=== PATIENT | female | born 1995 | race African-American/Black ===

== ENCOUNTER → 2017-03-10 | Outpatient (CLI) | payer OTHER | LOC: OD 11:30 | PROVIDERS: ATTEND Physician Assistant | DX: M54.5 Low back pain (principal); M54.6 Pain in thoracic spine | CPT/HCPCS: 72070; 72110 ==

== ENCOUNTER 2017-12-03 19:36 | Emergency (ER) | payer OTHER ==
[2017-12-03 19:43] VITALS: BP 121/82
[2017-12-03] MEDS ORDERED: OXYCODONE-ACETAMINOPHEN 5-325 MG TABLET PO ONE (20:14)
[2017-12-03] MEDS ORDERED: CYCLOBENZAPRINE HCL 10 MG TABLET PO ONE (20:15)
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
--- NOTE | 2017-12-03 20:44 | RADIOLOGY REPORT (SQ) ---
EXAM DESCRIPTION: CT CERVICAL SPINE WITHOUT COMPLETED DATE/TIME: 12/03/2017 8:30 pm REASON FOR STUDY: sharp pain left side of neck down, numb left arm COMPARISON: None. TECHNIQUE: Axial images acquired through the cervical spine without intravenous contrast. Images re viewed with lung, soft tissue and bone windows. Reconstructed coronal and sagittal MPR images review ed. Images stored on PACS. All CT scanners at this facility use dose modulation, iterative reconstruction, and/or weight based d osing when appropriate to reduce radiation dose to as low as reasonably achievable (ALARA). [facility]: Dose Right [facility]: CareDose [facility]: Dose Right [facility]: Teradose 4D [facility]: [employer] RADIATION DOSE: CT Rad equipment meets quality standard of care and radiation dose reduction techniq ues were employed. CTDIvol: 11.5 mGy. DLP: 260 mGy-cm. mGy. LIMITATIONS: None. FINDINGS: ALIGNMENT: Anatomic. MINERALIZATION: Normal. VERTEBRAL BODIES: No fractures or dislocation. DISCS: No significant disc disease. FACETS, LATERAL MASSES, POSTERIOR ELEMENTS: No fractures. No dislocation. No acute findings. HARDWARE: None in the spine. VISUALIZED RIBS: No fractures. LUNG APICES AND SOFT TISSUES: No significant or acute findings. OTHER: No other significant finding. IMPRESSION: NO ACUTE OR SIGNIFICANT FINDINGS IN THE CERVICAL SPINE. TECHNICAL DOCUMENTATION: JOB ID: [id number] Quality ID # [id number]: Final reports with documentation of one or more dose reduction techniques (e.g., Au tomated exposure control, adjustment of the mA and/or kV according to patient size, use of iterative reconstruction technique) 2010 [employer]- All Rights Reserved
[2017-12-03] MEDS ORDERED: PREDNISONE 20 MG TABLET PO ONE (20:56)
== END 2017-12-03 21:15 | disposition home or self-care (01) ==
LOC: ER 19:36
DX: M54.2 Cervicalgia (principal); R20.2 Paresthesia of skin; I10 Essential (primary) hypertension
CPT/HCPCS: 99283; 72125; L0120; J7512

== ENCOUNTER 2018-01-25 08:55 | Emergency (ER) | payer SELFPAY ==
[2018-01-25 08:59] VITALS: BP 112/79
[2018-01-25] MEDS ORDERED: PENICILLIN G BENZATHINE 1.2 MILLION UNIT/2 ML DISP.SYRIN IM ONE (09:27)
[2018-01-25] MEDS ORDERED: LIDOCAINE 2% VISCOUS SOLN 20 ML UDCUP PO ONE (09:27)
--- NOTE | 2018-01-25 09:33 | ER Document Report ---
ED General - General Chief Complaint: Sore Throat Stated Complaint: SORE THROAT Time Seen by Provider: 01/25/18 09:27 Notes: 22-year-old female here with complaints of sore throat ongoing for the past 1 day. Pain is worse with swallowing. She is still able to swallow however. She is able to tolerate her secretions. More painful to swallow solids versus liquids. She has not tried taking anything for the pain. No cough congestion runny nose vomiting diarrhea fevers chills. TRAVEL OUTSIDE OF THE [place] IN LAST 30 DAYS: No - Related Data Allergies/Adverse Reactions: No Known Allergies Allergy (Verified 01/25/18 08:56) Past Medical History - Social History Smoking Status: Unknown if Ever Smoked Family History: Reviewed & Not Pertinent - Past Medical History Cardiac Medical History: Reports: Hx Hypertension - hx of Denies: Hx Coronary Artery Disease, Hx Heart Attack Pulmonary Medical History: Denies: Hx Asthma, Hx Bronchitis, Hx COPD, Hx Pneumonia Neurological Medical History: Reports: Hx Migraine. Denies: Hx Cerebrovascular Accident, Hx Seizures Renal/ Medical History: Denies: Hx Peritoneal Dialysis Musculoskeltal Medical History: Denies Hx Arthritis Past Surgical History: Reports: Hx Gynecologic Surgery, Hx Herniorrhaphy - Umbilical, Hx Orthopedic Surgery - left knee. Denies: Hx Hysterectomy - Immunizations Immunizations up to date: Yes Hx Diphtheria, Pertussis, Tetanus Vaccination: Yes Review of Systems - Review of Systems Notes: See history of present illness for pertinent positive review of systems; otherwise all review of systems have been reviewed and are negative Physical Exam - Vital signs Vitals: Temp Pulse Resp BP Pulse Ox 98.8 F 87 16 112/79 98 01/25/18 08:58 01/25/18 08:58 01/25/18 08:58 01/25/18 08:58 01/25/18 08:58 - Notes Notes: PHYSICAL EXAMINATION: GENERAL: Well-appearing and in no acute distress. HEAD: Atraumatic, normocephalic. EYES: Pupils equal round and reactive to light, extraocular movements intact, sclera anicteric, conjunctiva are normal. ENT: nares patent, oropharynx mild to moderate erythema with moderate tonsillar exudates. Moist mucous membranes. Widely patent airway NECK: Normal range of motion, supple without lymphadenopathy LUNGS: CTAB and equal. No wheezes rales or rhonchi. HEART: Regular rate and rhythm without murmurs ABDOMEN: Soft, no tenderness. No guarding, no rebound EXTREMITIES: Normal range of motion, no pitting edema. No cyanosis. NEUROLOGICAL: Cranial nerves grossly intact. Normal sensory/motor exams. PSYCH: Normal mood, normal affect. SKIN: Warm, Dry, normal turgor, no rashes or lesions noted Course - Re-evaluation Re-evalutation: 01/25/18 09:33 MEDICAL DECISION MAKING: Concern for strep pharyngitis Able to tolerate secretions appropriately She opts for a one-time dose of Bicillin Return precautions given but otherwise follow-up PCP next day or few instructed Patient understands and agrees to the plan of care - Vital Signs Vital signs: Temp Pulse Resp BP Pulse Ox 98.8 F 87 16 112/79 98 01/25/18 08:58 01/25/18 08:58 01/25/18 08:58 01/25/18 08:58 01/25/18 08:58 Discharge - Discharge Clinical Impression: Strep throat Condition: Good Disposition: HOME, SELF-CARE Instructions: Strep Throat ([facility]) Additional Instructions: Your treated for strep pharyngitis with a one-time dose of antibiotics called Bicillin. Use Cepacol throat spray for your throat pain. Ibuprofen and Tylenol will also help. If swallowing pills is too painful, use liquid ibuprofen and Tylenol. You were seen in the emergency department at [facility]. Please followup with your primary physician in the next few days for further management/evaluation. Please return to the emergency department for worsening of symptoms or any symptom that you deem to be concerning or life-threatening. Thank you for allowing us to be part of your care.
== END 2018-01-25 10:38 | disposition home or self-care (01) ==
LOC: ER 08:55
DX: J02.0 Streptococcal pharyngitis (principal); I10 Essential (primary) hypertension
CPT/HCPCS: 99282; 96372; J0561

== ENCOUNTER 2018-05-14 13:41 | Emergency (ER) | payer SELFPAY ==
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
--- NOTE | 2018-05-14 14:49 | RADIOLOGY REPORT (SQ) ---
EXAM DESCRIPTION: FOREARM RIGHT COMPLETED DATE/TIME: 05/14/2018 2:38 pm REASON FOR STUDY: pain s/p injury proximal radius tenderness COMPARISON: None. NUMBER OF VIEWS: Two views. TECHNIQUE: Two radiographic images acquired of the right forearm, including elbow and wrist in at le ast one projection. LIMITATIONS: None. FINDINGS: MINERALIZATION: Normal. BONES: No acute fracture. No worrisome bone lesions. SOFT TISSUES: No obvious swelling or foreign body. OTHER: No other significant finding. IMPRESSION: NEGATIVE STUDY OF THE RIGHT FOREARM. NO RADIOGRAPHIC EVIDENCE OF ACUTE INJURY. TECHNICAL DOCUMENTATION: JOB ID: [id number] [employer]- All Rights Reserved Reading location - IP/workstation name: [email or web address]
--- NOTE | 2018-05-14 14:50 | RADIOLOGY REPORT (SQ) ---
EXAM DESCRIPTION: HAND RIGHT 3 VIEWS COMPLETED DATE/TIME: 05/14/2018 2:38 pm REASON FOR STUDY: pain s/p injury, snuff box tenderness COMPARISON: None. EXAM PARAMETERS: NUMBER OF VIEWS: Three views. TECHNIQUE: AP, lateral and oblique radiographic images acquired of the right hand. LIMITATIONS: None. FINDINGS: MINERALIZATION: Normal. BONES: No acute fracture or dislocation. No worrisome bone lesions. JOINTS: No effusions. SOFT TISSUES: No soft tissue swelling. No foreign body. OTHER: No other significant finding. IMPRESSION: NEGATIVE STUDY OF THE RIGHT HAND. NO RADIOGRAPHIC EVIDENCE OF ACUTE INJURY. TECHNICAL DOCUMENTATION: JOB ID: [id number] [employer]- All Rights Reserved Reading location - IP/workstation name: [email or web address]
[2018-05-14 15:42] VITALS: BP 118/77
== END 2018-05-14 15:44 | disposition home or self-care (01) ==
LOC: ER 13:41
DX: M79.641 Pain in right hand (principal); M79.631 Pain in right forearm; W50.0XXA Accidental hit or strike by another person, initial encounter; I10 Essential (primary) hypertension
CPT/HCPCS: 99283

== ENCOUNTER 2018-06-12 14:33 | Emergency (ER) | payer SELFPAY ==
--- NOTE | 2018-06-12 16:01 | ER Document Report ---
ED General - General Chief Complaint: Arm Pain Stated Complaint: ARM NECK PAIN Time Seen by Provider: 06/12/18 15:41 TRAVEL OUTSIDE OF THE [place] IN LAST 30 DAYS: No - HPI Patient complains to provider of: Left arm pain Notes: Patient coming in for evaluation of left arm pain. Patient states she did have her arm stuck between a door earlier in the week and now has developed 2 small knots in the forearm concerned she has a blood clot in her arm. Denies any swelling denies any numbness or tingling placed pain is from hand to neck. Patient denies any other trauma. Patient was to complete formal evaluation - Related Data Allergies/Adverse Reactions: No Known Allergies Allergy (Verified 05/14/18 14:22) Past Medical History - Social History Smoking Status: Never Smoker Chew tobacco use (# tins/day): No Frequency of alcohol use: None Drug Abuse: None Family History: Reviewed & Not Pertinent Patient has suicidal ideation: No Patient has homicidal ideation: No - Past Medical History Cardiac Medical History: Reports: Hx Hypertension - hx of Denies: Hx Coronary Artery Disease, Hx Heart Attack Pulmonary Medical History: Denies: Hx Asthma, Hx Bronchitis, Hx COPD, Hx Pneumonia Neurological Medical History: Reports: Hx Migraine. Denies: Hx Cerebrovascular Accident, Hx Seizures Renal/ Medical History: Denies: Hx Peritoneal Dialysis Musculoskeletal Medical History: Denies Hx Arthritis Past Surgical History: Reports: Hx Gynecologic Surgery - endometriosis, Hx Herniorrhaphy - Umbilical, Hx Orthopedic Surgery - left knee. Denies: Hx Hysterectomy - Immunizations Immunizations up to date: Yes Hx Diphtheria, Pertussis, Tetanus Vaccination: Yes Review of Systems - Review of Systems Constitutional: No symptoms reported EENT: No symptoms reported Cardiovascular: No symptoms reported Respiratory: No symptoms reported Gastrointestinal: No symptoms reported Genitourinary: No symptoms reported Female Genitourinary: No symptoms reported Musculoskeletal: Other - Arm pain Skin: No symptoms reported Hematologic/Lymphatic: No symptoms reported Neurological/Psychological: No symptoms reported -: Yes All other systems reviewed and negative Physical Exam - Vital signs Vitals: Temp Pulse Resp BP Pulse Ox 99.0 F 72 14 132/95 H 99 06/12/18 14:36 06/12/18 14:36 06/12/18 14:36 06/12/18 14:36 06/12/18 14:36 Interpretation: Normal - General General appearance: Appears well, Alert - HEENT Head: Normocephalic, Atraumatic Eyes: Normal Pupils: PERRL - Respiratory Respiratory status: No respiratory distress Chest status: Nontender Breath sounds: Normal Chest palpation: Normal - Cardiovascular Rhythm: Regular Heart sounds: Normal auscultation Murmur: No - Abdominal Inspection: Normal Distension: No distension Bowel sounds: Normal Tenderness: Nontender Organomegaly: No organomegaly - Back Back: Normal, Nontender - Extremities General upper extremity: Nontender, Normal color, Normal ROM, Normal temperature. No: Normal inspection - Patient has 2 small pea-sized nodules on the forearm one midforearm he has been near the antecubital region with no signs of trauma. Bedside ultrasound shows compressibility of the veins along with augmentation there is flow in the noncompressible side. There is correlation of 1 of the larger bumps in the mid forearm region within the soft tissues looking consistent with a bruise. General lower extremity: Normal inspection, Nontender, Normal color, Normal ROM , Normal temperature, Normal weight bearing. No: You's sign - Neurological Neuro grossly intact: Yes Cognition: Normal Orientation: AAOx4 [place] Coma Scale Eye Opening: Spontaneous [place] Coma Scale Verbal: Oriented [place] Coma Scale Motor: Obeys Commands [place] Coma Scale Total: 15 Speech: Normal Motor strength normal: LUE, RUE, LLE, RLE Sensory: Normal - Psychological Associated symptoms: Normal affect, Normal mood - Skin Skin Temperature: Warm Skin Moisture: Dry Skin Color: Normal Course - Re-evaluation Re-evalutation: 06/12/18 16:51 No acute findings of a blood clot on my bedside examination. Otherwise the patient's physical examination is otherwise benign. Possible etiology for 2 small areas in the form could be from remote trauma. Patient was encouraged to place warm compresses on the area antifungal medication along with Tylenol. Patient will be discharged home. - Vital Signs Vital signs: Temp Pulse Resp BP Pulse Ox 98.0 F 76 18 125/80 99 06/12/18 16:04 06/12/18 16:04 06/12/18 16:04 06/12/18 16:04 06/12/18 16:04 Discharge - Discharge Clinical Impression: Arm pain Qualifiers: Laterality: left Qualified Code(s): M79.602 - Pain in left arm Condition: Good Disposition: HOME, SELF-CARE Instructions: Arm Pain, Nonspecific ([facility]) Additional Instructions: Follow-up with her primary care physician. Bedside ultrasound today does not show any signs of a blood clot within the arms. Ultrasound does show some signs of possible muscle contusion at the site of the 2 small knots. We recommend Tylenol Motrin for pain control keep the arm elevated at night also apply warm packs and cold packs for pain control. Return to the ER symptoms worsen. Prescriptions: Ibuprofen [Motrin 600 mg Tablet] 600 mg PO Q8HP PRN #21 tablet PRN Reason: Forms: Return to Work
[2018-06-12 16:07] VITALS: BP 125/80
== END 2018-06-12 16:05 | disposition home or self-care (01) ==
LOC: ER 14:33
DX: M79.602 Pain in left arm (principal); I10 Essential (primary) hypertension
CPT/HCPCS: 99283

== ENCOUNTER 2018-12-19 11:37 | Emergency (ER) | payer BC, OTHER ==
[2018-12-19] MEDS ORDERED: KETOROLAC TROMETHAMINE 60 MG/2 ML SDV IM ONE (12:48)
[2018-12-19] MEDS ORDERED: SUMATRIPTAN SUCCINATE INJ/PF 6 MG/0.5 ML SDV SUBCUT ONE (12:48)
[2018-12-19] MEDS ORDERED: ONDANSETRON ODT 4 MG TAB (6 TAB/ER DISP) PO PRN (12:48)
--- NOTE | 2018-12-19 12:49 | ER Document Report ---
ED Medical Screen (RME) - General Chief Complaint: Headache Stated Complaint: HEADACHE Time Seen by Provider: 12/19/18 12:44 Primary Care Provider: LUKE FLORES DO [Primary Care Provider] - Follow up as needed Notes: 23 years old female with a history of migraine headaches presents today since this morning around 630, associated with complete loss of vision from 6:30 AM to 7:30 AM. Now having global headache, slight nausea no vomiting. And also having left upper neck pain. Denies any focal weakness numbness tingling sensation. TRAVEL OUTSIDE OF THE [place] IN LAST 30 DAYS: No - Related Data Allergies/Adverse Reactions: No Known Allergies Allergy (Verified 12/19/18 11:37) Past Medical History - Social History Family history: None - Past Medical History Cardiac Medical History: Reports: Hx Hypertension - hx of Denies: Hx Coronary Artery Disease, Hx Heart Attack Pulmonary Medical History: Denies: Hx Asthma, Hx Bronchitis, Hx COPD, Hx Pneumonia Neurological Medical History: Reports: Hx Migraine. Denies: Hx Cerebrovascular Accident, Hx Seizures Renal/ Medical History: Denies: Hx Peritoneal Dialysis Musculoskeltal Medical History: Denies Hx Arthritis Past Surgical History: Reports: Hx Gynecologic Surgery - endometriosis, Hx Herniorrhaphy - Umbilical, Hx Orthopedic Surgery - left knee. Denies: Hx Hysterectomy - Immunizations Immunizations up to date: Yes Hx Diphtheria, Pertussis, Tetanus Vaccination: Yes Physical Exam - Vital signs Vitals: Temp Pulse Resp BP Pulse Ox 98.4 F 84 16 120/71 100 12/19/18 12:01 12/19/18 12:01 12/19/18 12:01 12/19/18 12:01 12/19/18 12:01 Course - Vital Signs Vital signs: Temp Pulse Resp BP Pulse Ox 98.4 F 84 16 120/71 100 12/19/18 12:12/19/18 12:01 12/19/18 12:01 12/19/18 12:01 12/19/18 12:01 Doctor's Discharge - Discharge Referrals: LUKE FLORES DO [Primary Care Provider] - Follow up as needed
[2018-12-19] MEDS ORDERED: PROCHLORPERAZINE EDISYLATE INJ 10 MG/2 ML VIAL IV ONE (14:31)
[2018-12-19] MEDS ORDERED: NORMAL SALINE 1000 ML 1,000 ML IV ONE (14:31)
[2018-12-19] MEDS ORDERED: DIPHENHYDRAMINE HCL 50 MG/ML VIAL IV ONE (14:31)
--- NOTE | 2018-12-19 14:35 | ER Document Report ---
ED Headache - General Chief Complaint: Headache Stated Complaint: HEADACHE Time Seen by Provider: 12/19/18 12:44 Primary Care Provider: LUKE FLORES DO [Primary Care Provider] - Follow up as needed Mode of Arrival: Ambulatory Information source: Patient Notes: Patient states that she woke up with a headache around 630 this morning. Patient states that she has daily migraines in which she wakes up with headache pain. Patient states that this headache was different and that it started in the occipital area and then migrated to the temporal and frontal areas. Patient states usually she just has temporal and frontal headache. Patient states that between 630 and 730 she had blurred vision. Patient states that typically with her migraine she does not have any visual symptoms. Patient denies any nausea vomiting diarrhea. Patient denies any fever or head injury. Patient denies any recent illness. Patient states that she had to have her call into her employer today. Patient states that she had a lot going on at home which is why she did not come in initially when her symptoms started. TRAVEL OUTSIDE OF THE [place] IN LAST 30 DAYS: No - HPI Patient complains to provider of: Headache Patient reports: Prior neurologic eval, Other - Daily migraines Onset: This morning Onset was: Gradual Timing: Still present Quality of pain: Throbbing Pain Level: 4 Context: denies: Head injury Associated symptoms: Double/blurred vision - Blurred. denies: Fever, Nausea/vomiting, Neck pain, Speech problems, Stiff neck Exacerbated by: Light. denies: Noise Similar symptoms previously: No - Daily migraines, although not usually with any visual symptoms Recently seen / treated by doctor: No - Related Data Allergies/Adverse Reactions: No Known Allergies Allergy (Verified 12/19/18 11:37) Past Medical History - General Information source: Patient - Social History Smoking Status: Never Smoker Chew tobacco use (# tins/day): No Frequency of alcohol use: None Drug Abuse: None Family History: Reviewed & Not Pertinent Patient has suicidal ideation: No Patient has homicidal ideation: No - Past Medical History Cardiac Medical History: Reports: Other - POTS Denies: Hx Hypercholesterolemia, Hx Peripheral Vascular Disease Neurological Medical History: Reports: Hx Migraine. Denies: Hx Cerebrovascular Accident, Hx Seizures Renal/ Medical History: Denies: Hx Peritoneal Dialysis Past Surgical History: Reports: Hx Gynecologic Surgery - endometriosis, Hx Herniorrhaphy - Umbilical, Hx Orthopedic Surgery - left knee. Denies: Hx Hysterectomy - Immunizations Immunizations up to date: Yes Hx Diphtheria, Pertussis, Tetanus Vaccination: Yes Review of Systems - Review of Systems Constitutional: No symptoms reported. denies: Fever, Recent illness EENT: Blurred vision Cardiovascular: No symptoms reported. denies: Chest pain Respiratory: No symptoms reported. denies: Cough Gastrointestinal: No symptoms reported. denies: Diarrhea, Vomiting Genitourinary: No symptoms reported Female Genitourinary: No symptoms reported Musculoskeletal: Neck pain - Lateral neck tenderness. denies: Back pain Skin: No symptoms reported. denies: Rash Hematologic/Lymphatic: No symptoms reported Neurological/Psychological: Headaches. denies: Confusion, Weakness Physical Exam - Vital signs Vitals: Temp Pulse Resp BP Pulse Ox 98.4 F 84 16 120/71 100 12/19/18 12:01 12/19/18 12:01 12/19/18 12:01 12/19/18 12:01 12/19/18 12:01 - General General appearance: Appears well, Alert In distress: None - HEENT Head: Normocephalic, Atraumatic Eyes: Normal Conjunctiva: Normal Extraocular movements intact: Yes Eyelashes: Normal Pupils: PERRL Corrective lenses worn: No Ears: Normal External canal: Normal Tympanic membrane: Normal Nasal: Normal Mouth/Lips: Normal Mucous membranes: Normal. No: Dry Pharynx: Normal. No: Erythema, Exudate, Potential airway comprom. Neck: Other - Mild cervical paraspinal tenderness with palpation, no midline tenderness step-off or deformity. No: Brudzinski, Lymphadenopathy, Meningismus - Respiratory Respiratory status: No respiratory distress Chest status: Nontender Breath sounds: Normal. No: Rales, Rhonchi, Stridor, Wheezing Chest palpation: Normal - Cardiovascular Rhythm: Regular Heart sounds: S1 appreciated, S2 appreciated Murmur: No - Back Back: Tender - Trapezius muscle tenderness - Extremities General upper extremity: Normal inspection, Normal ROM General lower extremity: Normal inspection, Normal ROM - Neurological Neuro grossly intact: Yes Cognition: Normal Key Coma Scale Eye Opening: Spontaneous [place] Coma Scale Verbal: Oriented [place] Coma Scale Motor: Obeys Commands [place] Coma Scale Total: 15 Speech: Normal. No: Dysarthria Cranial nerves: Normal. No: Facial palsy Cerebellar coordination: Normal Motor strength normal: LUE, RUE, LLE, RLE - Psychological Associated symptoms: Normal affect, Normal mood - Skin Skin Temperature: Warm Skin Moisture: Dry Skin Color: Normal Course - Re-evaluation Re-evalutation: 12/19/18 14:[address] Doshi regarding patient presentation and exam findings. Dr. Doshi did evaluate patient in the [facility] area. Does not recommend any MR imaging at this time suspect patient has migraine with visual features. Does not recommend any CT imaging. Requests that a urine drug screen be performed. 12/19/18 15:09 dr Doshi to bedside to discuss plan of care with patient. Explained to the patient that he feels symptoms are attributed to migraine, and does not feel that patient warrants any additional imaging at this time and is safe for discharge. Patient refuses any medications for headache stating that she chronically has migraines and she does not want to just go home and sleep and wake up tomorrow with a migraine. Patient is not requesting any additional medications and would like to be discharged. Patient denies any visual disturbance symptoms at this time. Patient neurologically intact. Patient without any history of cardiovascular disease. Patient otherwise healthy. Patient had been followed by neurology fairly closely for her daily migraines up until a year ago when she lost her insurance. Patient does have her insurance reinstated and is encouraged to follow-up with her neurologist for recheck. The patient presents with headache without signs of [employer] bleed, stroke, infection, or other serious etiology. The patient is neurologically intact. Given the extremely low risk of these diagnoses further testing and evaluation for these possibilities does not appear to be indicated at this time. The patient has been instructed to return if the symptoms worsen or change in any way. 12/19/18 15:19 - Vital Signs Vital signs: Temp Pulse Resp BP Pulse Ox 98.4 F 84 16 120/71 100 12/19/18 12:01 12/19/18 12:01 12/19/18 12:01 12/19/18 12:01 12/19/18 12:01 Discharge - Discharge Clinical Impression: Headache Qualifiers: Headache type: unspecified Headache chronicity pattern: unspecified pattern Intractability: not intractable Qualified Code(s): R51 - Headache Condition: Stable Disposition: HOME, SELF-CARE Instructions: Headache ([facility]), Migraine Headache ([facility]) Additional Instructions: Return immediately for any new or worsening symptoms Followup with your primary care provider, call tomorrow to make a followup appointment Follow-up with your neurologist for a recheck, call today for an appointment Stay well-hydrated. Forms: Return to Work Referrals: LUKE FLORES, [Primary Care Provider] - Follow up as needed
[2018-12-19 15:13] LABS: APPEARANCE,URINE SLIGHTLY-CLOUDY; BILIRUBIN,URINE NEGATIVE (NEGATIVE); COLOR,URINE YELLOW; GLUCOSE, URINE NEGATIVE (NEGATIVE); KETONES,URINE NEGATIVE (NEGATIVE); LEUKOCYTE ESTERASE,URINE NEGATIVE (NEGATIVE); NITRITE,URINE NEGATIVE (NEGATIVE); PROTEIN,URINE NEGATIVE (NEGATIVE); UROBILINOGEN,URINE NEGATIVE mg/dL (<2.0)
[2018-12-19 15:23] VITALS: BP 120/70
[2018-12-19 15:24] LABS: URINE AMPHETAMINES SCREEN NEGATIVE; URINE BARBITURATES SCREEN NEGATIVE; URINE BENZODIAZEPINES SCREEN NEGATIVE; URINE COCAINE SCREEN NEGATIVE; URINE MARIJUANA (THC) SCREEN NEGATIVE; URINE METHADONE SCREEN NEGATIVE; URINE PHENCYCLIDINE SCREEN NEGATIVE
== END 2018-12-19 15:23 | disposition home or self-care (01) ==
LOC: ER 11:37
DX: R51 Headache (principal); H53.8 Other visual disturbances; Z86.69 Personal history of other diseases of the nervous system and sense organs
CPT/HCPCS: 99283; 96372; 81025; 81001; 80307; J1885; J3030; J7030

== ENCOUNTER 2019-05-20 10:39 | Emergency (ER) | payer OTHER ==
[2019-05-20 11:00] VITALS: BP 127/88
--- NOTE | 2019-05-20 11:08 | ER Document Report ---
HPI - HPI Time Seen by Provider: 05/20/19 10:56 Pain Level: 4 Notes: Patient is a 24-year-old female with a history of migraines, POTS who presents complaining of head injury to the left side forehead/tenriism area status post injury yesterday. Patient states that she is playing football when she got hit in the forehead area and then fell to the ground and hit her head again. Patient states that she did have some nausea initially but no loss of consciousness or vomiting. Patient states that since then her symptoms have overall improved, but she is continuing to feel some fatigue and having a mild headache. She has been using Motrin which does seem to help at home. She is able to eat and drink without difficulty. She is urinating normally and having normal bowel movements. Patient has been ambulatory since then without difficulty. Patient is requesting a work note. Denies drug allergies. No other concerns or complaints. Denies any fever, changes in vision/speech/mentation/hearing, URI, sore throat, chest pain, palpitations, syncope, cough, shortness of breath, wheeze, dyspnea, abdominal pain, nausea/vomiting/diarrhea, urinary retention, dysuria, hematuria, loss of control of bowel or bladder, numbness/tingling, saddle anesthesia, muscle para lysis/weakness, or rash. - ROS Systems Reviewed and Negative: Yes All other systems reviewed and negative - REPRODUCTIVE Reproductive: DENIES: : - DERM Skin Color: Normal Past Medical History - Social History Smoking Status: Never Smoker Chew tobacco use (# tins/day): No Frequency of alcohol use: Occasional Drug Abuse: None Family History: Reviewed & Not Pertinent Patient has suicidal ideation: No Patient has homicidal ideation: No - Past Medical History Cardiac Medical History: Reports: Hx Hypertension - hx of Denies: Hx Coronary Artery Disease, Hx Heart Attack, Hx Hypercholesterolemia, Hx Peripheral Vascular Disease Pulmonary Medical History: Denies: Hx Asthma, Hx Bronchitis, Hx COPD, Hx Pneumonia Neurological Medical History: Reports: Hx Migraine. Denies: Hx Cerebrovascular Accident, Hx Seizures Renal/ Medical History: Denies: Hx Peritoneal Dialysis Musculoskeletal Medical History: Denies Hx Arthritis Past Surgical History: Reports: Hx Gynecologic Surgery - endometriosis, Hx Herniorrhaphy - Umbilical, Hx Orthopedic Surgery - left knee. Denies: Hx Hysterectomy - Immunizations Immunizations up to date: Yes Hx Diphtheria, Pertussis, Tetanus Vaccination: Yes Vertical Provider Document - CONSTITUTIONAL Agree With Documented VS: Yes Notes: PHYSICAL EXAMINATION: accompanied by female nurse GENERAL: Well-appearing, well-nourished and in no acute distress. A&Ox4. Answers questions appropriately. HEAD/Face: Atraumatic, normocephalic. Non-tender. No lauren sign. No bogginess or hematoma noted. No bony tenderness of the face. EYES: Pupils equal round and reactive to light, extraocular movements intact, sclera anicteric, conjunctiva are normal. No raccoon eyes/entrapment ENT: EAC clear b/l. TM's intact b/l without erythema, fluid, or perforation. Nares patent and without discharge. oropharynx clear without exudates. No tonsilar hypertrophy or erythema. Moist mucous membranes. No sinus tenderness. No hemotympanum/CSF discharge. NECK: Normal range of motion, supple without lymphadenopathy. No rigidity. No midline tenderness. NEXUS negative. + mild tenderness to the c-paraspinal mm in to the traps left side. LUNGS: Breath sounds clear to auscultation bilaterally and equal. No wheezes rales or rhonchi. HEART: Regular rate and rhythm without murmurs, rubs, gallops. ABDOMEN: Soft, nontender, nondistended abdomen. No guarding, no rebound. Normal bowel sounds present. No CVA tenderness bilaterally. Musculoskeletal: Ext b/l: FROM to passive/active. Strength 5+/5. No deficits noted. No bony tenderness of extremities. Back: FROM to passive/active. Strength 5+/5. No vertebral point tenderness, stepoffs, or deformities. No other bony tenderness or ecchymosis. Extremities: No cyanosis, clubbing, or edema b/l. Peripheral pulses 2+. Capillary refill less than 2 seconds. NEUROLOGICAL: NIH 0. GCS 15. Cranial nerves grossly intact. Normal speech, normal gait. Normal sensory, motor exams. Reflexes 2+ b/l. SULEMAN's negative. Pronator drift negative. Heel/camilo, finger/nose wnl. Romberg negative PSYCH: Normal mood, normal affect. SKIN: Warm, Dry, normal turgor, no rashes or lesions noted. - INFECTION CONTROL TRAVEL OUTSIDE OF THE [place] IN LAST 30 DAYS: No Course - Re-evaluation Re-evalutation: 05/20/19 11:05 Patient is an afebrile, well-hydrated, 24yo female who presents to the ED with closed head injury and left lateral neck pain, suspect benign. Vitals are acceptable without any significant tachycardia, tachypnea, or hypoxia. PE is otherwise unremarkable for any focal neurological deficits. No labs or imaging warranted at this time based on H&P. NIH 0, GCS 15, cranial nerves grossly intact, Nexus criteria negative, CT [place] head criteria negative. Reviewed the risk and benefit of CT imaging with the patient and mother were both in agreement with not performing the CT at this time. Patient is nontoxic- appearing and is tolerating p.o. without any difficulties. Low suspicion for any meningitis, fracture, expanding/ruptured AAA, cauda equina syndrome, epidural mass lesion/abscess, herniated disc causing severe spinal stenosis, acute intracranial process, or other systemic infection at this time. Patient is aware that this condition can change from initial presentation and that she needs monitor symptoms closely for any acute changes. I will send her home with a prescription for robaxin and naproxen. Conservative measures otherwise for symptoms. Recheck with your PCM in 2-3 days. Return to the ED with any worsening/concerning symptoms otherwise as reviewed in discharge. Patient is in agreement. - Vital Signs Vital signs: Temp Pulse Resp BP Pulse Ox 97.7 F 72 16 127/88 H 100 05/20/19 10:42 05/20/19 10:42 05/20/19 10:42 05/20/19 10:42 05/20/19 10:42 Discharge - Discharge Clinical Impression: Neck pain on left side Closed head injury Qualifiers: Encounter type: initial encounter Qualified Code(s): S09.90XA - Unspecified injury of head, initial encounter Condition: Stable Disposition: HOME, SELF-CARE Instructions: Head Injury Precautions ([facility]), Post-Concussion Syndrome ([facility]) Additional Instructions: You have been evaluated in the Emergency Department for a head injury and have been diagnosed with a concussion. Concussions can be associated with any of the following symptoms: confusion, sleepiness, memory deficits, nausea, general fatigue, or headaches. The only way to treat these symptoms is complete brain rest. Please follow-up with both your primary physician and a Neurologist in 2-3 days or when able to be rechecked. Return to the ER immediately if you experience episodes of passing out, having an unstable or wobbly gait, have uncontrollable headaches or nausea, have blindness/vision changes, or have any other concerning symptoms. Brain Rest: 1. No activity/work/school or phone/TV/computer for at least one week. 2. After a week you can slowly incorporate small tasks like brushing your teeth and other small activities over a couple days. 3. If symptoms return, go back to step 1 and repeat; if no further symptoms, progress to step 4. 4. After small tasks can be performed without symptoms, slowly introduce more rigorous tasks like cooking, cleaning, etc. over 2-3 days. 5. If symptoms return, go back to step 1 and repeat; if no further symptoms, progress to step 6. 6. If rigorous tasks can be performed without symptoms, you may resume normal daily activity. 7. At any point, if symptoms return, return to strict brain rest and start the process over. Return to the ED with any worsening symptoms and/or development of fever, headache, changes in behavior/mentation/vision/speech, chest pain, palpitations, syncope, shortness of breath, trouble breathing, abdominal pain, n/v/d, blood in stool/urine, loss of control of bowel/bladder, urinary retention, muscle weakness/paralysis, saddle anesthesia, numbness/tingling, or other worsening symptoms that are concerning to you. Prescriptions: Methocarbamol [Robaxin] 500 mg PO TID PRN #12 tablet PRN Reason: Naproxen 500 mg PO BID #10 tablet Forms: Elevated Blood Pressure, Return to Work Referrals: LUKE FLORES DO [Primary Care Provider] - Follow up as needed
== END 2019-05-20 11:14 | disposition home or self-care (01) ==
LOC: ER 10:39
DX: S09.90XA Unspecified injury of head, initial encounter (principal); M54.2 Cervicalgia; R51 Headache; R53.83 Other fatigue; W22.8XXA Striking against or struck by other objects, initial encounter; Y93.61 Activity, american tackle football; I10 Essential (primary) hypertension
CPT/HCPCS: 99283

== ENCOUNTER 2019-10-24 15:31 | Emergency (ER) | payer OTHER ==
[2019-10-24 15:36] VITALS: BP 131/89
[2019-10-24] MEDS ORDERED: KETOROLAC TROMETHAMINE INJ/PF 30 MG/1 ML SDV IM ONE (15:43)
[2019-10-24] MEDS ORDERED: DEXAMETHASONE SOD PHOS INJ 10 MG/1 ML VIAL IM ONE (15:43)
[2019-10-24] MEDS ORDERED: LIDOCAINE 5% (700 MG) TRANSDERMAL ADH..PATCH TP ONE (15:43)
[2019-10-24] MEDS ORDERED: ACETAMINOPHEN 325 MG TABLET PO ONE (15:43)
--- NOTE | 2019-10-24 15:49 | ER Document Report ---
HPI - HPI Time Seen by Provider: 10/24/19 15:34 Pain Level: 2 Context: 24-year-old female with remote history of herniated cervical disks presents to the emergency department with neck pain and left arm radiculopathy after waking up this morning. There is no trauma or inducing factors and she just woke up with the pain. Patient denies any acute weakness but does complain of some mild sensory loss. No IV drug use, no fevers, no history of cancer. Patient has sig nificantly limited range of motion turning her head to the left with neck flexion and extension. - REPRODUCTIVE Reproductive: DENIES: : Past Medical History - Social History Smoking Status: Never Smoker Chew tobacco use (# tins/day): No Frequency of alcohol use: None Drug Abuse: None Family History: Reviewed & Not Pertinent Patient has suicidal ideation: No Patient has homicidal ideation: No - Past Medical History Cardiac Medical History: Reports: Hx Hypertension - hx of Denies: Hx Coronary Artery Disease, Hx Heart Attack, Hx Hypercholesterolemia, Hx Peripheral Vascular Disease Pulmonary Medical History: Denies: Hx Asthma, Hx Bronchitis, Hx COPD, Hx Pneumonia Neurological Medical History: Reports: Hx Migraine. Denies: Hx Cerebrovascular Accident, Hx Seizures Renal/ Medical History: Denies: Hx Peritoneal Dialysis Musculoskeletal Medical History: Denies Hx Arthritis Past Surgical History: Reports: Hx Gynecologic Surgery - endometriosis, Hx Herniorrhaphy - Umbilical, Hx Orthopedic Surgery - left knee. Denies: Hx Hysterectomy - Immunizations Immunizations up to date: Yes Hx Diphtheria, Pertussis, Tetanus Vaccination: Yes Vertical Provider Document - CONSTITUTIONAL Notes: PHYSICAL EXAMINATION: Reviewed vital signs and charting by RN GENERAL: Alert, interacts well. No acute distress. HEAD: Normocephalic, atraumatic. EYES: Pupils equal and round. Extraocular movements intact. ENT: Oral mucosa moist, tongue midline. NECK: Limited range of motion with flexion and extension of the neck, patient can rotate her neck to the left only 10 to 20 degrees and to the right approximately 60 degrees as some midline tenderness over the area of C5 with no paraspinal tenderness of the upper trapezius muscles. Trachea midline. EXTREMITIES: Moves all 4 extremities spontaneously. No edema, No cyanosis. PSYCH: Normal affect, normal mood. SKIN: Warm, dry, normal turgor. No rashes or lesions noted. - INFECTION CONTROL TRAVEL OUTSIDE OF THE [place] IN LAST 30 DAYS: No Course - Re-evaluation Re-evalutation: 10/24/19 15:50 Patient is well-appearing in no acute distress, patient with significant limited range of motion so Spurling maneuver not applicable with this patient. Patient does have some midline tenderness with cervical radiculopathy to the left arm. Patient denies fevers or IV drug use. There is no concerning etiology to perform advanced imaging at this time so conservative treatment will be administered. Patient will get a dexamethasone 10 mg IM once, Toradol 30 mg IM once, and a Lidoderm patch with instructions to follow-up with Dr. Staples in the next 3 to 5 days. Patient is stable for discharge. - Vital Signs Vital signs: Temp Pulse Resp BP Pulse Ox 98.2 F 70 16 131/89 H 100 10/24/19 15:35 10/24/19 15:35 10/24/19 15:35 10/24/19 15:35 10/24/19 15:35 Discharge - Discharge Clinical Impression: Cervical radiculopathy Condition: Good Disposition: HOME, SELF-CARE Additional Instructions: Your pain is most likely related to impingement one of your cervical nerve roots and will take 4 weeks to completely resolve. For your pain: Take ibuprofen 600 mg and acetaminophen 1000 mg every 6 hours together as needed for pain. In addition to this, purchased the product that is sold [id number] called Aspercreme with lidocaine. Apply to the affected area per bottle instructions. You should also apply heat to the area regularly using an electric heating plant pad. Return to the emergency department immediately if you develop weakness, worsening loss of sensation, chest pain, shortness of breath, have worsening of your symptoms, or any other symptoms that are worrisome to you. Referrals: LUKE STAPLES DO [Primary Care Provider] - Follow up in 3-5 days
== END 2019-10-24 16:25 | disposition home or self-care (01) ==
LOC: ER 15:31
DX: M54.12 Radiculopathy, cervical region (principal); M54.2 Cervicalgia; I10 Essential (primary) hypertension
CPT/HCPCS: 99283; 96372; J1885; J1100

== ENCOUNTER 2019-12-09 18:43 | Emergency (ER) | payer OTHER ==
--- NOTE | 2019-12-09 19:04 | ER Document Report ---
ED Medical Screen (RME) - General Chief Complaint: Leg Pain Stated Complaint: LEFT LEG/ARM PAIN, NUMBNESS Time Seen by Provider: 12/09/19 18:55 Primary Care Provider: LUKE FLORES DO [Primary Care Provider] - Follow up as needed Mode of Arrival: Wheelchair Information source: Patient Notes: 24-year-old female presented to ED for complaint of numbness tingling to the left arm around 10:00 this morning. She states that it did get better but it is still having some numbness and tingling and then about 5 PM she started having numbness and tingling in her left leg and cannot move her left leg. She states if she tries to move her left leg she has severe pain in the left thigh. When I pick her leg up and drop it it just flops. She has no movement to her toes on the left side. She states she does have a history of migraines and that sometimes her migraines causes numbness and tingling but she has never had a limb go limp before. Last menstrual cycle 23 November. She states she does not smoke, weekly drinks, and no drugs. She does not have any pain except if she tries to move it tended to level 5. I have greeted and performed a rapid initial assessment of this patient. A comprehensive ED assessment and evaluation of the patient, analysis of test results and completion of medical decision making process will be conducted by an additional ED providers. TRAVEL OUTSIDE OF THE [place] IN LAST 30 DAYS: No - Related Data Allergies/Adverse Reactions: No Known Allergies Allergy (Verified 10/24/19 15:36) Past Medical History - Social History Family history: None - Past Medical History Cardiac Medical History: Reports: Hx Hypertension - hx of Denies: Hx Coronary Artery Disease, Hx Heart Attack, Hx Hypercholesterolemia, Hx Peripheral Vascular Disease Pulmonary Medical History: Denies: Hx Asthma, Hx Bronchitis, Hx COPD, Hx Pneumonia Neurological Medical History: Reports: Hx Migraine. Denies: Hx Cerebrovascular Accident, Hx Seizures Renal/ Medical History: Denies: Hx Peritoneal Dialysis Musculoskeltal Medical History: Denies Hx Arthritis Past Surgical History: Reports: Hx Gynecologic Surgery - endometriosis, Hx Herniorrhaphy - Umbilical, Hx Orthopedic Surgery - left knee. Denies: Hx Hysterectomy - Immunizations Immunizations up to date: Yes Hx Diphtheria, Pertussis, Tetanus Vaccination: Yes Physical Exam - Vital signs Vitals: Temp Pulse Resp BP Pulse Ox 99.4 F 73 20 133/95 H 100 12/09/19 18:52 12/09/19 18:52 12/09/19 18:52 12/09/19 18:52 12/09/19 18:52 Course - Vital Signs Vital signs: Temp Pulse Resp BP Pulse Ox 99.4 F 73 20 133/95 H 100 12/09/19 18:52 12/09/19 18:52 12/09/19 18:52 12/09/19 18:52 12/09/19 18:52 Doctor's Discharge - Discharge Referrals: LUKE FLORES DO [Primary Care Provider] - Follow up as needed
--- NOTE | 2019-12-09 19:08 | ER Document Report ---
ED NIH Stroke Scale - NIH Stroke Scale *: 1. NIH scale should be completed with appropriate accompanying assessment tools. *: 2. The NIH should reflect what the patient is capable of doing and should not be coached by the clinician. 1a. Level of Consciousness: 0=Alert;keenly responsive -: 1=Drowsy -: 2=Obtunded -: 3=Coma/unresponsive or reflex to noxious stimuli. 1a. Responses: 0 1b. Orientation Questions: a. What month is it? -: b. How old are you? -: 0=Answers both questions correctly. -: 1=Answers one question correctly or patient is intubated or has orotracheal trauma. -: 2=Answers neither question correctly. 1b. Responses: 0 1c. Response to commands: a. Open and close eyes? -: b. Bark Spudder and release hand? -: Credit is given despite weakness. Demonstration of task is permitted. Substitute command if hands cannot be used. -: 0=Performs both tasks correctly -: 1=Performs one task correctly -: 2=Performs neither task correctly 1c. Responses: 0 2. Gaze: Establish eye contact and instruct patient to "Follow my finger" -: 0=Normal -: 1=Partial gaze palsy. Gaze is abnormal in one or both eyes, but where forced deviation or total gaze paresis is not present. -: 2=Forced deviation or total gaze paresis. 2. Responses: 0 3. Visual Olson: Sees fingers in all four quadrants. -: 0=No visual loss. -: 1=Partial hemianopsia. -: 2=Complete hemianopsia. -: 3=Bilateral hemianopsia (including Cortical blindness) 3. Responses: 0 4. Facial Movement: Instruct patient to: -: a. Show me your teeth -: b. Raise your eyebrows -: c. Close your eyes -: d. Smile -: 0=Normal symmetrical movement -: 1=Minor paralysis (flattened nasolabial fold, asymmetry on smiling). -: 2=Partial paralysis (total or near total paralysis of lower face). -: 3=Complete paralysis of upper and lower face 4. Responses: 0 5. Motor functions (left arm): Alternate sides and extend each arm with palms down (90 degrees if sitting or 45 degrees for supine). -: 0=No drift;limb holds for full 10 seconds. -: 1=Drift; limb holds but drifts down before full 10 seconds, but does not hit bed. -: 2=Some effort against gravity; limb cannot get to or maintain position. -: 3=No effort against gravity; limb falls. -: 4=No movement. -: UN=Amputation, joint fusion, explain in comments. 5. Responses (left arm): 0 5. Motor Functions (right arm): Alternate sides and extend each arm with palms down (90 degrees if sitting or 45 degrees for supine). -: 0=No drift;limb holds for full 10 seconds. -: 1=Drift; limb holds but drifts down before full 10 seconds, but does not hit bed. -: 2=Some effort against gravity; limb cannot get to or maintain position. -: 3=No effort against gravity; limb falls. -: 4=No movement. -: UN=Amputation, joint fusion, explain in comments. 5. Responses (right arm): 0 6. Motor Functions (left leg): With patient lying supine, alternate sides and extend each leg (30 degrees always while supine). -: 0=No drift, leg holds position for full 5 seconds -: 1=Drift; leg falls before full 5 seconds but does not hit bed. -: 2=Some effort against gravity, leg falls to bed but some effort against gravity. -: 3=No effort against gravity, leg falls to bed immediately. -: 4=No movement. -: UN=Amputation, joint fusion; explain in comments. 6. Responses (left leg): 3 6. Motor Functions (right leg): With patient lying supine, alternate sides and extend each leg (30 degrees always while supine). -: 0=No drift, leg holds position for full 5 seconds -: 1=Drift; leg falls before full 5 seconds but does not hit bed. -: 2=Some effort against gravity, leg falls to bed but some effort against gravity. -: 3=No effort against gravity, leg falls to bed immediately. -: 4=No movement. -: UN=Amputation, joint fusion; explain in comments. 6. Responses (right leg): 0 7. Limb Ataxia: With eyes open instruct patient to: -: a. "Touch your finger to your nose". -: b. "Touch your heel to your camilo" -: 0=Absent -: 1=Present in one limb. -: 2=Present in two limbs. -: UN=Amputation or joint fusion; explain in comments. 7. Responses: 0 8. Sensory: Test sensation using pinprick or noxious stimuli. Test as many body parts as possible. -: 0=Normal;no sensory loss -: 1=Mile to moderate sensory loss (patient feels pin prick but is less sharp on affected side). -: 2=Severe or total sensory loss. 8. Responses: 0 9. Best Language: Instruct patient to: -: a. "Describe what you see in this picture." -: b. "Name the items in this picture." -: c. "Read these sentences." -: 0=No aphasia, normal -: 1=Mild to moderate aphasia. -: 2=Severe aphasia -: 3=Mute, global aphasia, no usable speech or auditory comprehension. 9. Responses: 0 10. Articulation, Dysarthia: Instruct patient to: -: "Read these words" or "Repeat these words" -: 0=Normal -: 1=Mild to moderate; patient may slur some words but can be understood without difficulty. -: 2=Severe; patients speech so slurred as to be unintelligible in the absence of dysphasia. -: UN=Intubated or other physical barrier, explain in comments. 10. Responses: 0 11. Extinction or inattention: 0=No abnormality -: 1= Visual, tactile, auditory, spatial, or personal inattention or extinction to bilateral simulation in one or the sensory modalities. -: 2=Profound meme-inattention or meme-inattention to more than one modality; does not recognize own hand. 11. Responses: 0 Total Score: 3
--- NOTE | 2019-12-09 19:33 | RADIOLOGY REPORT (SQ) ---
EXAM DESCRIPTION: CT HEAD WITHOUT COMPLETED DATE/TIME: 12/09/2019 7:14 pm REASON FOR STUDY: Stroke protocol COMPARISON: 12/23/2008 TECHNIQUE: Axial images acquired through the brain without intravenous contrast. Images reviewed wi th bone, brain and subdural windows. Additional sagittal and coronal reconstructions were generated. Images stored on PACS. All CT scanners at this facility use dose modulation, iterative reconstruction, and/or weight based d osing when appropriate to reduce radiation dose to as low as reasonably achievable (ALARA). [facility]: Dose Right [facility]: CareDose [facility]: Dose Right [facility]: Teradose 4D [facility]: [employer] Technologies RADIATION DOSE: CT Rad equipment meets quality standard of care and radiation dose reduction techniq ues were employed. CTDIvol: 53.2 mGy. DLP: 991 mGy-cm. mGy. LIMITATIONS: None. FINDINGS: VENTRICLES: Normal size and contour. CEREBRUM: No masses. No hemorrhage. No midline shift. No evidence for acute infarction. Normal gra y/white matter differentiation. No areas of low density in the white matter. CEREBELLUM: No masses. No hemorrhage. No alteration of density. No evidence for acute infarction. EXTRAAXIAL SPACES: No fluid collections. No masses. ORBITS AND GLOBE: No intra- or extraconal masses. Normal contour of globe without masses. CALVARIUM: No fracture. PARANASAL SINUSES: No fluid or mucosal thickening. SOFT TISSUES: No mass or hematoma. OTHER: No other significant finding. IMPRESSION: NORMAL BRAIN CT WITHOUT CONTRAST. EVIDENCE OF ACUTE STROKE: NO. COMMENT: Pertinent positive or negative findings of the imaging study reported as a CRITICAL EXAM cruz BROUSSARD NP at19:27 on 12/09/2019. Category of Critical Exam: Stroke alert Quality ID # [id number]: Final reports with documentation of one or more dose reduction techniques (e.g., Au tomated exposure control, adjustment of the mA and/or kV according to patient size, use of iterative reconstruction technique) TECHNICAL DOCUMENTATION: JOB ID: [id number] 2010 [employer]- All Rights Reserved Reading location - IP/workstation name: [email or web address]
--- NOTE | 2019-12-09 19:35 | RADIOLOGY REPORT (SQ) ---
EXAM DESCRIPTION: CHEST SINGLE VIEW COMPLETED DATE/TIME: 12/09/2019 7:17 pm REASON FOR STUDY: Stroke protocol COMPARISON: 01/14/2016 EXAM PARAMETERS: NUMBER OF VIEWS: One view. TECHNIQUE: Single frontal radiographic view of the chest acquired. RADIATION DOSE: NA LIMITATIONS: None. FINDINGS: LUNGS AND PLEURA: No opacities, masses or pneumothorax. No pleural effusion. MEDIASTINUM AND HILAR STRUCTURES: No masses. Contour normal. HEART AND VASCULAR STRUCTURES: Heart normal in size. Normal vasculature. BONES: No acute findings. HARDWARE: Loop recorder. OTHER: No other significant finding. IMPRESSION: NO ACUTE RADIOGRAPHIC FINDING IN THE CHEST. TECHNICAL DOCUMENTATION: JOB ID: [id number] 2010 [employer]- All Rights Reserved Reading location - IP/workstation name: [email or web address]
[2019-12-09 19:44] LABS: ABSOLUTE EOSINOPHILS # (AUTO) 0.4 10^3/uL (0.0-0.6); ABSOLUTE LYMPHOCYTES (AUTO) 3.4 10^3/uL (0.5-4.7); ABSOLUTE MONOCYTES (AUTO) 0.7 10^3/uL (0.1-1.4); ABSOLUTE NEUT (AUTO) 2.1 10^3/uL (1.7-8.2); BASOPHILS % (AUTO) 0.6 % (0-2); EOSINOPHILS % (AUTO) 5.8 % (0-6); HEMATOCRIT 40.8 % (36.0-47.0); HEMOGLOBIN 13.2 g/dL (12.0-15.5); INTERNATIONAL RATION (INR) 0.97; LYMPHOCYTES % (AUTO) 50.9 % (13-45); MEAN CORPUSCULAR HEMOGLOBIN 27.4 pg (27.0-33.4); MEAN CORPUSCULAR HGB CONC 32.4 g/dL (32.0-36.0); MEAN CORPUSCULAR VOLUME 85 fl (80-97); MONOCYTES % (AUTO) 11.2 % (3-13); PARTIAL THROMBOPLASTIN TIME 28.5 SEC (23.5-35.8); PLATELET COUNT 248 10^3/uL (150-450); PROTHROMBIN TIME 12.9 SEC (11.4-15.4); RED BLOOD COUNT 4.82 10^6/uL (3.72-5.28); RED CELL DISTRIBUTION WIDTH 13.1 % (11.5-14.0); SEGMENTED NEUTROPHILS % (AUTO) 31.5 % (42-78); TOTAL CELLS COUNTED % (AUTO) 100 %; WHITE BLOOD COUNT 6.6 10^3/uL (4.0-10.5)
[2019-12-09 20:08] LABS: ALBUMIN 4.3 g/dL (3.5-5.0); ALKALINE PHOSPHATASE 58 U/L (38-126); ANION GAP 9 (5-19); ASPARTATE AMINO TRANSFERASE 19 U/L (14-36); BILIRUBIN,TOTAL 0.3 mg/dL (0.2-1.3); BLOOD UREA NITROGEN 9 mg/dL (7-20); CALCIUM 9.2 mg/dL (8.4-10.2); CARBON DIOXIDE 26 mmol/L (22-30); CHLORIDE 102 mmol/L (98-107); CREATINE KINASE 93 U/L (30-135); GLUCOSE 85 mg/dL (75-110); POTASSIUM 3.8 mmol/L (3.6-5.0); TOTAL PROTEIN 7.8 g/dL (6.3-8.2)
[2019-12-09 20:15] LABS: CREATINE KINASE MB 0.31 ng/mL (<4.55)
[2019-12-09 20:16] LABS: TROPONIN I < 0.012 ng/mL
[2019-12-10] MEDS ORDERED: ASPIRIN 325 MG TABLET PO ONE (00:02)
--- NOTE | 2019-12-10 00:06 | ER Document Report ---
ED General - General Mode of Arrival: Wheelchair TRAVEL OUTSIDE OF THE [place] IN LAST 30 DAYS: No - Related Data Home Medications: denies <EMMIE BRYANT - Last Filed: 12/10/19 06:54> <CHINA WONG - Last Filed: 12/10/19 10:08> - General Chief Complaint: Numbness Stated Complaint: LEFT LEG/ARM PAIN, NUMBNESS Time Seen by Provider: 12/09/19 18:55 Primary Care Provider: LUKE FLORES DO [Primary Care Provider] - Follow up as needed Notes: 24-year-old female presents emergency department complaining of left arm numbness and tingling starting somewhere around 10 AM, states that last time she certain her arm was normal was somewhere between 8 or 9 AM. Patient states she has had symptoms like this before when she has had migraines and the symptoms have been attributed to migraines however she does not have a headache right now and has not had one in several days. Patient does not have any arm weakness with this. Around 5 PM this evening patient tried to stand up and stated that she fell to the ground because she could not move her left leg at all. Denies any numbness or tingling to her left leg, states she simply cannot move it. Last time that she remembers being able to move it was approximately 330 this afternoon. Patient has never had this symptom before ever including with her migraines. Had a concussion a few months ago, denies any recent injury, denies any family history, denies any known hypercoagulable state, denies taking any blood thinners. (EMMIE BRYANT) - Related Data Allergies/Adverse Reactions: No Known Allergies Allergy (Verified 10/24/19 15:36) Past Medical History - General Information source: Patient - Social History Smoking Status: Never Smoker Chew tobacco use (# tins/day): No Frequency of alcohol use: Social Drug Abuse: Marijuana Family History: Reviewed & Not Pertinent Patient has suicidal ideation: No Patient has homicidal ideation: No - Past Medical History Cardiac Medical History: Reports: Hx Hypertension - hx of Denies: Hx Coronary Artery Disease, Hx Heart Attack, Hx Hypercholesterolemia, Hx Peripheral Vascular Disease Pulmonary Medical History: Denies: Hx Asthma, Hx Bronchitis, Hx COPD, Hx Pneumonia Neurological Medical History: Reports: Hx Migraine. Denies: Hx Cerebrovascular Accident, Hx Seizures Renal/ Medical History: Denies: Hx Peritoneal Dialysis Musculoskeletal Medical History: Denies Hx Arthritis Past Surgical History: Reports: Hx Gynecologic Surgery - endometriosis, Hx Herniorrhaphy - Umbilical, Hx Orthopedic Surgery - left knee. Denies: Hx Hysterectomy - Immunizations Immunizations up to date: Yes Hx Diphtheria, Pertussis, Tetanus Vaccination: Yes <WILYMARIA ELENAEMMIE - Last Filed: 12/10/19 06:54> Review of Systems - Review of Systems Constitutional: No symptoms reported Musculoskeletal: See HPI Neurological/Psychological: See HPI -: Yes All other systems reviewed and negative <EMMIE BRYANT - Last Filed: 12/10/19 06:54> Physical Exam - Vital signs Interpretation: Normal <EMMIE BRYANT - Last Filed: 12/10/19 06:54> - Vital signs Vitals: Temp Pulse Resp BP Pulse Ox 99.4 F 73 20 133/95 H 100 12/09/19 18:52 12/09/19 18:52 12/09/19 18:52 12/09/19 18:52 12/09/19 18:52 - Notes Notes: GENERAL: Alert, interacts well. No acute distress. HEAD: Normocephalic, atraumatic EYES: Pupils equal, round and reactive to light, extraocular movements intact. ENT: Oral mucosa moist, tongue midline. NECK: Full range of motion, supple, trachea midline. LUNGS: Clear to auscultation bilaterally, no wheezes, rales or rhonchi, no respiratory distress. HEART: Regular rate and rhythm, no murmurs, gallops, rubs. ABDOMEN: Soft, nontender, nondistended, bowel sounds present in all 4 quadrants. EXTREMITIES: Moves all 4 extremities spontaneously, no edema, radial and dorsalis pedis pulses 2/4 bilaterally. No cyanosis. NEUROLOGICAL: Alert and oriented x3, normal speech, cranial nerves II through XII grossly intact, biceps, achilles and patellar DTRs 2+ bilaterally. Sensation intact in the left arm and the left leg. When attempting to lift of the left leg off the bed the right heel does not depress into the bed, when lifting the right heel off the bed the left heel does depress into the bed. Otherwise there is almost no movement to the left leg. When I asked her to lift the left leg off the bed she has slight contraction of the quadriceps muscle on the left, when I attempt to elicit a Babinski returns reflex from the left foot her digits 2 through 5 curled downward but her great toe does not move at all. Patient does not withdraw from painful stimuli. NIH is 3. PSYCH: Normal mood, normal affect. Does not appear concerned by her inability to move her left leg. SKIN: Warm, Dry, normal turgor, no rashes or lesions noted. (EMMIE BRYANT) Course - Laboratory Result Diagrams: 12/09/19 19:20 12/09/19 19:20 <EMMIE BRYANT - Last Filed: 12/10/19 06:54> - Laboratory Result Diagrams: 12/09/19 19:20 12/09/19 19:20 - Diagnostic Test Radiology reviewed: Image reviewed, Reports reviewed <CHINA WONG - Last Filed: 12/10/19 10:08> - Re-evaluation Re-evalutation: 12/10/19 00:18 CBC unremarkable, CMP shows slight low sodium, troponin normal, chest x-ray unremarkable, CT scan of the head is negative, patient is out of timeframe for TPA as her last known normal was sometime between 8 or 9 AM this morning with tingling definitively onset at 10 in her left arm but may have started before that. Discussed this with patient and she understands why she is not a candidate for TPA. I did call [facility] to discuss her as a possible stroke, RUSSELL Keller from the neurology service states that they would not do an emergent MRI overnight, states that we should get a CTA of the head and neck to look for large vessel occlusion. If there is one they will take her as a code stroke otherwise she should get an MRI in the morning. 12/10/19 02:51 CTA of the head and the neck is negative for large vessel occlusion. This is been communicated to [facility], they are still on regional management and as such cannot take the patient or even add them to their wait list at this time. 12/10/19 04:37 Dr. Rodriguez agreed to evaluate the patient for possible admission, after reviewing her chart he discovered that she does have a history of trochanteric bursitis, his examination did reveal significant tenderness palpation along the left greater trochanter. Recommended anti-inflammatories in the form of ibuprofen 800 mg every 8 hours for the next 5 days and possible steroids and discharged home. I did go back in and discussed the plan with the patient and reexamine her, at present her neurologic exam is improved although still not normal. Exam is r ather confusing and etiology is unclear. I asked the patient to try and raise her left foot and this time her right foot did push into my hand. She was able to slightly withdraw her left foot from pain but then on repeated testing she did not withdraw. I then asked the patient to stand and she was able to bear weight on her left foot and move her right foot forward however when I asked her to move her left foot forward she could not pick her left foot up off the ground and move it forward at all. However when she moved her feet off the bed wearing her sandals she was able to dorsiflex her left foot slightly to prevent the sandal from falling off. Sensation is still intact. Patient has had no bowel or bladder dysfunction. Has no back pain. At this point I did discuss with the patient that I am not entirely comfortable releasing her to home when she is unable to ambulate without a specific reason. Raising her toes should not be affected by trochanteric bursitis and flexion and extension at the knee also should not be affected by trochanteric bursitis. Discussed with patient that if she wanted to be discharged to home despite ambulatory dysfunction we could trial outpatient anti-inflammatories. I also offered transfer to another hospital with MRI and neurology. And patient was offered to be kept in the emergency department, started on anti-inflammatories and steroids and have an MRI performed of the brain when they arrive in the morning. She has chosen to stay in the emergency department. I have added on ESR and CRP to see if I may be missing some occult inflammatory process. I have ordered Toradol and Decadron. I have also ordered a physical therapy evaluation. 12/10/19 06:54 Dr. Wong will continue to follow-up on this patient and the results of the MRI. ESR and CRP were negative. (EMIME BRYANT) 12/10/19 10:07 I reexamined patient just now. She is resting comfortably in the bed watching TV and eating crackers. Patient has been seen to move toes and foot spontaneously. However when I asked patient to move she states that she is unable to move her left lower extremity. Her work-up here shows no evidence of stroke or any explanation for why she would be unable to move her left lower extremity. I have recommended her that she follow-up with neurology as soon as possible. I do not believe that she would benefit from further inpatient evaluation. (CHINA WONG) - Vital Signs Vital signs: Temp Pulse Resp BP Pulse Ox 98.3 F 67 19 118/80 98 12/10/19 04:01 12/10/19 03:00 12/10/19 08:01 12/10/19 08:00 12/10/19 08:01 - Laboratory Laboratory results interpreted by me: 12/09/19 12/09/19 19:20 19:20 Lymph % (Auto) 50.9 H Seg Neutrophils % 31.5 L Sodium 136.7 L - EKG Interpretation by Me Additional EKG results interpreted by me: 12/10/19 02:52 EKG shows sinus rhythm at a rate of 72, normal axis, normal intervals, no ST segment elevations or depressions, T wave inversions are isolated to lead III per my interpretation. (EMMIE BRYANT) Discharge <EMMIE BRYANT - Last Filed: 12/10/19 06:54> <CHINA WONG - Last Filed: 12/10/19 10:08> - Discharge Clinical Impression: Left leg pain, Left leg weakness Condition: Stable Disposition: HOME, SELF-CARE Instructions: Leg Pain Nonspecific ([facility]) Additional Instructions: No evidence of a stroke could be found on today's work-up. I recommend that you follow-up with a neurologist as soon as possible to further investigate the weakness of your left lower extremity. Forms: Return to Work Referrals: LUKE FLORES DO [Primary Care Provider] - Follow up tomorrow PEARL FRANCO MD [COMMUNITY BASED STAFF] - Follow up in 3-5 days
--- NOTE | 2019-12-10 02:22 | RADIOLOGY REPORT (SQ) ---
CTA head and neck: Technique: Postcontrast imaging was obtained through the head and neck after intravenous contrast is administered utilizing a CTA protocol. MIP reconstructed sagittal and coronal images were also obtained. Noncontrast imaging through the head was also obtained. NASCET Criteria was utilized for evaluation of potential vascular stenosis in the neck. This exam was performed according to our departmental dose-optimization program, which includes automated exposure control, adjustment of the mA and/or KV according to the patient's size and/or use of iterative reconstruction technique. COMPARISON: None available HISTORY: 24-year-old patient with concern for an acute stroke. FINDINGS: CTA HEAD: No discrete filling defect is seen within the middle, anterior, and posterior cerebral arteries. The visualized vertebral arteries appear unremarkable. The carotid arteries appear to be well opacified. No obvious aneurysm or stenosis is readily apparent. The basilar artery and visualized portions of the posterior circulation appear unremarkable. CTA NECK: There is normal three-vessel aortic arch morphology. The brachiocephalic and proximal subclavian arteries are patent and normal in course and caliber. The common carotid arteries, carotid bulbs and proximal external carotid arteries are patent and normal in course and caliber. The cervical segments of the internal carotid arteries are patent and normal in course and caliber. There is a codominant vertebral arterial system. The vertebral arteries are patent and normal in course and caliber. Non contrast head: The ventricles are within normal limits for size. No extra-axial fluid collection is seen. The lilly-white matter differentiation is within normal limits. There are no findings to suggest acute intracranial hemorrhage. The calvarium is intact. Both orbits appear unremarkable. No midline shift or mass effect is apparent. There is minimal mucoperiosteal thickening ethmoid sinuses. The visualized mastoid air cells appear clear. IMPRESSION: No discrete filling defect, aneurysm, or obvious stenosis is seen within the anterior or posterior intracranial circulation. There are no findings to suggest a hemodynamically significant stenosis of the carotid arteries. No acute intracranial hemorrhage is seen.
[2019-12-10] MEDS ORDERED: KETOROLAC TROMETHAMINE INJ/PF 30 MG/1 ML SDV IV ONE (04:34)
[2019-12-10] MEDS ORDERED: DEXAMETHASONE SOD PHOS INJ 10 MG/1 ML VIAL IV ONE (04:34)
--- NOTE | 2019-12-10 09:49 | RADIOLOGY REPORT (SQ) ---
EXAM DESCRIPTION: MRI HEAD WITHOUT COMPLETED DATE/TIME: 12/10/2019 9:06 am REASON FOR STUDY: can't walk, left leg weakness COMPARISON: CT brain 12/09/2019 CT angio head and neck 12/10/2019 TECHNIQUE: Multiplanar imaging includes non-contrasted T1, T2, FLAIR, and diffusion with ADC map seq uences. Images stored on PACS. LIMITATIONS: None. FINDINGS: ANATOMY: No anomalies. Normal vascular flow voids. Pituitary fossa normal. CSF SPACES: Normal in size and contour. No hemorrhage. CEREBRUM: Sulci and gyri normal in size and contour. Normal white matter signal on FLAIR imaging. No evidence of hemorrhage, mass, or extraaxial fluid collection. POSTERIOR FOSSA: No signal alteration. No hemorrhage. No edema, masses or mass effect. Internal samia tory canals, cerebello-pontine angles, mastoids normal. DIFFUSION IMAGING: Negative for acute or sub-acute infarction. ORBITS: No masses. Globes normal. PARANASAL SINUSES: No fluid levels. Mucosa normal. OTHER: No other significant finding. IMPRESSION: NORMAL MRI OF THE BRAIN WITHOUT INTRAVENOUS GADOLINIUM CONTRAST. EVIDENCE OF ACUTE STROKE: NO. TECHNICAL DOCUMENTATION: JOB ID: [id number] 2010 [employer]- All Rights Reserved Reading location - IP/workstation name: [email or web address]
[2019-12-10 10:34] VITALS: BP 111/81
--- NOTE | 2019-12-10 11:40 | EKG REPORT ---
SEVERITY:- NORMAL ECG - SINUS RHYTHM : Confirmed by: Joe Bhardwaj 10-Dec-2019 11:39:22
== END 2019-12-10 10:51 | disposition home or self-care (01) ==
LOC: ER 18:43
DX: R53.1 Weakness (principal); M79.605 Pain in left leg; R20.0 Anesthesia of skin; R20.2 Paresthesia of skin; F12.10 Cannabis abuse, uncomplicated; I10 Essential (primary) hypertension; Z87.39 Personal history of other diseases of the musculoskeletal system and connective tissue
CPT/HCPCS: 93005; 36415; 82553; 82962; 82550; 84703; 85025; 85652; 85610; 85730; 86140; 80053; 84484; 70551; 71045; 70450; 70496; 70498; 93010; J1885; J1100; 96365; 96375; 99284